=== PATIENT | female | born 1950 | race Caucasian/White ===

== ENCOUNTER 2021-08-19 09:14 | Emergency (ER) | payer MEDICARE, OTHER, MEDICAID ==
[~2021-08-19 09:14] MED LIST: ACIDOPHILUS LA1 EACH PO; BACTRIM DS TAB1 EACH PO; CLARITIN10 M2 PO; DOXYCYCLINE HY100 M2 PO; GLUCOPHAGE 500500 MG PO; HYDROCHLOROTH12.5 M1 PO; LEVAQUIN750 MG PO; LISINOPRIL10 MG PO; NEURONTIN800 MG PO; PLAVIX 75 MG TA75 MG PO; PRILOSEC OTC20 MG PO; SIMVASTATIN40 MG PO; SYNTHROID88 MCG PO; ZETIA10 MG PO
== END 2021-08-19 16:00 | disposition home or self-care (01) ==
LOC: ER1 09:14
PROVIDERS: Orthopaedic Surgery
PROC: 0RSKXZZ Reposition Left Shoulder Joint, External Approach (ICD-10-PCS; principal; 2021-08-19 14:30)
DX: S42.252A Displaced fracture of greater tuberosity of left humerus, initial encounter for closed fracture (principal); S43.005A Unspecified dislocation of left shoulder joint, initial encounter; J44.9 Chronic obstructive pulmonary disease, unspecified; K21.9 Gastro-esophageal reflux disease without esophagitis; I10 Essential (primary) hypertension; E11.9 Type 2 diabetes mellitus without complications; M19.90 Unspecified osteoarthritis, unspecified site; F17.210 Nicotine dependence, cigarettes, uncomplicated; Z79.02 Long term (current) use of antithrombotics/antiplatelets; Z79.84 Long term (current) use of oral hypoglycemic drugs; Z79.890 Hormone replacement therapy; Z79.899 Other long term (current) drug therapy; X58.XXXA Exposure to other specified factors, initial encounter
CPT/HCPCS: 23650; 73030; 76000; 99283; J1100; J1885; J2001; J2405; J2704